=== PATIENT | female | born 1970 | race Caucasian/White ===

== ENCOUNTER 2022-09-22 15:43 | Outpatient (CLI) | payer OTHER | END 2022-09-22 15:44 | disposition critical access hospital (66) | LOC: EMS 15:43 | DX: T78.1XXA Other adverse food reactions, not elsewhere classified, initial encounter (principal); R06.02 Shortness of breath; R09.89 Other specified symptoms and signs involving the circulatory and respiratory systems; R06.2 Wheezing; F41.9 Anxiety disorder, unspecified | CPT/HCPCS: A0425; A0427 ==